=== PATIENT | male | born 1950 | race Caucasian/White ===

== ENCOUNTER 2025-02-14 23:08 | Outpatient (BNV) | payer MEDICARE, SELFPAY | END 2025-03-02 14:09 | PROVIDERS: Admitting Provider Psychiatry & Neurology Forensic Psychiatry; PCP Internal Medicine; Visit Provider Radiology Diagnostic Radiology | DX: K80.20 Calculus of gallbladder without cholecystitis without obstruction (principal); N28.1 Cyst of kidney, acquired | CPT/HCPCS: 76705 ==

== ENCOUNTER 2025-02-14 23:08 | Outpatient (BNV) | payer MEDICARE, SELFPAY | END 2025-03-01 11:13 | PROVIDERS: Admitting Provider Psychiatry & Neurology Forensic Psychiatry; PCP Internal Medicine; Visit Provider Radiology Vascular & Interventional Radiology | DX: R50.9 Fever, unspecified (principal) | CPT/HCPCS: 71045 ==

== ENCOUNTER 2025-02-14 23:08 | Outpatient (BNV) | payer MEDICARE, SELFPAY | END 2025-03-05 08:15 | PROVIDERS: Admitting Provider Psychiatry & Neurology Forensic Psychiatry; PCP Internal Medicine; Visit Provider Radiology Diagnostic Radiology | DX: Z03.89 Encounter for observation for other suspected diseases and conditions ruled out (principal) | CPT/HCPCS: 78226 ==

== ENCOUNTER 2025-02-14 23:08 | Outpatient (BNV) | payer MEDICARE, SELFPAY | END 2025-03-12 15:21 | PROVIDERS: Admitting Provider Psychiatry & Neurology Forensic Psychiatry; PCP Internal Medicine; Visit Provider Radiology Diagnostic Radiology | DX: R41.82 Altered mental status, unspecified (principal) | CPT/HCPCS: 70450 ==

== ENCOUNTER → 2025-02-14 23:08 | Outpatient (BNV) | payer MEDICARE, SELFPAY | PROVIDERS: Admitting Provider Psychiatry & Neurology Forensic Psychiatry; PCP Internal Medicine; Visit Provider Internal Medicine Gastroenterology | DX: R74.01 Elevation of levels of liver transaminase levels (principal) | CPT/HCPCS: 99223 ==

== ENCOUNTER → 2025-02-14 23:08 | Outpatient (BNV) | payer MEDICARE, SELFPAY | PROVIDERS: Admitting Provider Psychiatry & Neurology Forensic Psychiatry; PCP Internal Medicine; Visit Provider Psychiatry & Neurology Psychiatry | DX: G31.09 Other frontotemporal neurocognitive disorder (principal); F02.818 Dementia in other diseases classified elsewhere, unspecified severity, with other behavioral disturbance | CPT/HCPCS: 90792; 99231; 99232 ==

== ENCOUNTER → 2025-02-14 23:08 | Outpatient (BNV) | payer MEDICARE, SELFPAY | PROVIDERS: Admitting Provider Psychiatry & Neurology Forensic Psychiatry; PCP Internal Medicine; Visit Provider Student in an Organized Health Care Education/Training Program | DX: G31.09 Other frontotemporal neurocognitive disorder (principal); F02.818 Dementia in other diseases classified elsewhere, unspecified severity, with other behavioral disturbance; Q82.8 Other specified congenital malformations of skin; L60.2 Onychogryphosis; L84 Corns and callosities | CPT/HCPCS: 11056; 11721; 99222 ==

== ENCOUNTER → 2025-02-14 23:08 | Outpatient (BNV) | payer MEDICARE, SELFPAY | PROVIDERS: Admitting Provider Psychiatry & Neurology Forensic Psychiatry; Visit Provider Nurse Practitioner Family | DX: E03.9 Hypothyroidism, unspecified (principal); E78.5 Hyperlipidemia, unspecified | CPT/HCPCS: 99221 ==